=== PATIENT | male | born 1960 | race Caucasian/White ===

== ENCOUNTER 2018-04-04 13:10 | Emergency (ER) | payer SELFPAY ==
[~2018-04-04] VITALS: Ht 167.6 cm; Wt 70.0 kg
[2018-04-04] MEDS ORDERED: CLINDAMYCIN HCL 150MG CAPSULE PO STA (13:56)
[2018-04-04 15:03] VITALS: BP 123/82
== END 2018-04-04 15:09 | disposition left against medical advice (07) ==
LOC: ER 14:20
DX: T85.79XA Infection and inflammatory reaction due to other internal prosthetic devices, implants and grafts, initial encounter (principal); R00.0 Tachycardia, unspecified; Y83.8 Other surgical procedures as the cause of abnormal reaction of the patient, or of later complication, without mention of misadventure at the time of the procedure; Y92.018 Other place in single-family (private) house as the place of occurrence of the external cause
CPT/HCPCS: 99283